=== PATIENT | male | born 1985 | race Caucasian/White ===

== ENCOUNTER 2016-12-08 03:06 | Emergency (ER) | payer MEDICAID ==
[~2016-12-08] VITALS: Ht 195.6 cm; Wt 80.1 kg
[2016-12-08 03:08] VITALS: BP 112/72
[2016-12-08] MEDS ORDERED: LIDOCAINE 1%, 20ML ONE (03:24)
[2016-12-08] MEDS ORDERED: LIDOCAINE 1%, 20ML SQ ONE (03:30)
== END 2016-12-08 03:58 | disposition home or self-care (01) ==
LOC: ED 03:55
DX: L02.414 Cutaneous abscess of left upper limb (principal)
CPT/HCPCS: 10060